=== PATIENT | female | born 1985 | race Caucasian/White ===

== ENCOUNTER 2019-03-08 07:28 | Emergency (ER) | payer MEDICAID ==
[~2019-03-08] VITALS: Ht 149.9 cm; Wt 68.2 kg
[2019-03-08 07:32] VITALS: Ht 149.9 cm; Wt 68.2 kg
[2019-03-08 08:01] LABS: BASOPHILS 0.1 % (0-2); EOSINOPHILS 0.6 % (0-7); HEMOGLOBIN 12.5 g/dL (12-16); IMMATURE GRANULOCYTES 0.3 % (0-5); LYMPHOCYTES 22.8 % (15-50); MCHC 33.8 g/dL (31.0-37.0); MCV 88.9 fL (80.0-100.0); MEAN PLATELET VOLUME 9.7 fL (7.4-10.4); MONOCYTES 5.9 % (2-11); NEUTROPHILS 70.3 % (40-80); PLATELET COUNT 276 10x3/uL (130-400); RBC 4.16 10x6/uL (4.00-5.40); RDW 13.2 % (11.5-14.5); WBC 7.1 10x3/uL (4.8-10.8)
[2019-03-08 08:08] LABS: CALC OSMOLALITY 272 mosm/kg (275-300); CALCIUM 8.9 mg/dL (8.5-10.1); CARBON DIOXIDE 26.6 mmol/L (21.0-32.0); CHLORIDE - SERUM 105 mmol/L (98-107); CREATININE - SERUM 0.6 mg/dL (0.6-1.3); GLUCOSE 75 mg/dL (74-106); POTASSIUM - SERUM 3.7 mmol/L (3.5-5.1); SODIUM 138 mmol/L (136-145); UREA NITROGEN 6 mg/dL (7-18); eGFR NON AFRICAN AMERICAN > 90 mL/min (90-120)
[2019-03-08 08:14] LABS: ALBUMIN 3.4 g/dL (3.4-5.0); ALKALINE PHOSPHATASE 65 U/L (46-116); ALT (SGPT) 17 U/L (10-68); BILIRUBIN - TOTAL 0.39 mg/dL (0.2-1.3); LIPASE 81 U/L (73-393); PROTEIN - SERUM 7.7 g/dL (6.4-8.2)
[2019-03-08 08:20] LABS: AMORPHOUS SEDIMENT <1+ /lpf (NONE SEEN); APPEARANCE SL CLDY (CLEAR); BACTERIA MODERATE /hpf (NEGATIVE); BILIRUBIN NEGATIVE (NEGATIVE); COLOR YELLOW (YELLOW); EPITHELIAL CELLS 0-5 /hpf (0-5); GLUCOSE NEGATIVE (NEGATIVE); KETONE NEGATIVE (NEGATIVE); MUCUS <1+ /lpf (NONE SEEN); NITRITE NEGATIVE (NEGATIVE); PROTEIN NEGATIVE (NEGATIVE); RED CELLS - URINE RARE /hpf (0-5); UROBILINOGEN NORMAL (NORMAL); WHITE CELLS - URINE 0-5 /hpf (NEGATIVE)
[2019-03-08] MEDS ORDERED: VITAMIN B-625 MG PO (08:28)
[2019-03-08] MEDS ORDERED: OMNICEF300 MG PO (08:30)
[2019-03-08 09:05] VITALS: BP 102/66
== END 2019-03-08 09:16 | disposition home or self-care (01) ==
LOC: D.ER 07:28
PROVIDERS: Family Medicine
DX: O26.891 Other specified pregnancy related conditions, first trimester (principal); R82.71 Bacteriuria; Z3A.10 10 weeks gestation of pregnancy

== ENCOUNTER 2019-04-09 11:03 | Emergency (ER) | payer MEDICAID ==
[~2019-04-09] VITALS: Ht 149.9 cm; Wt 65.9 kg
[~2019-04-09 11:03] MED LIST: OMNICEF300 MG PO; VITAMIN B-625 MG PO
[2019-04-09 11:08] VITALS: Ht 149.9 cm; Wt 65.9 kg
[2019-04-09 11:26] LABS: BASOPHILS 0.2 % (0-2); EOSINOPHILS 0.8 % (0-7); HEMATOCRIT 34.5 % (36.0-48.0); HEMOGLOBIN 11.9 g/dL (12-16); IMMATURE GRANULOCYTES 0.2 % (0-5); LYMPHOCYTES 22.8 % (15-50); MCH 30.2 pg (26.0-34.0); MCHC 34.5 g/dL (31.0-37.0); MCV 87.6 fL (80.0-100.0); MEAN PLATELET VOLUME 9.9 fL (7.4-10.4); MONOCYTES 5.4 % (2-11); NEUTROPHILS 70.6 % (40-80); PLATELET COUNT 260 10x3/uL (130-400); RBC 3.94 10x6/uL (4.00-5.40); RDW 13.1 % (11.5-14.5); WBC 9.6 10x3/uL (4.8-10.8)
[2019-04-09 11:53] LABS: CALC OSMOLALITY 271 mosm/kg (275-300); CALCIUM 8.8 mg/dL (8.5-10.1); CHLORIDE - SERUM 104 mmol/L (98-107); CREATININE - SERUM 0.7 mg/dL (0.6-1.3); GLUCOSE 94 mg/dL (74-106); POTASSIUM - SERUM 3.3 mmol/L (3.5-5.1); SODIUM 137 mmol/L (136-145); UREA NITROGEN 8 mg/dL (7-18); eGFR NON AFRICAN AMERICAN > 90 mL/min (90-120)
[2019-04-09 11:56] LABS: ALBUMIN 3.1 g/dL (3.4-5.0)
[2019-04-09 12:07] LABS: APPEARANCE HAZY (CLEAR); BILIRUBIN NEGATIVE (NEGATIVE); COLOR YELLOW (YELLOW); GLUCOSE NEGATIVE (NEGATIVE); KETONE NEGATIVE (NEGATIVE); NITRITE NEGATIVE (NEGATIVE); PROTEIN TRACE mg/dL (NEGATIVE); UROBILINOGEN NORMAL (NORMAL)
[2019-04-09 12:08] LABS: BACTERIA MODERATE /hpf (NEGATIVE); RED CELLS - URINE NONE SEEN /hpf (0-5); WHITE CELLS - URINE 0-5 /hpf (NEGATIVE)
[2019-04-09 12:52] LABS: ALKALINE PHOSPHATASE 70 U/L (46-116); ALT (SGPT) 10 U/L (10-68); BILIRUBIN - TOTAL 0.25 mg/dL (0.2-1.3); HCG - QUANTITATIVE (MATERNAL) 26962 mIU/mL; PROTEIN - SERUM 6.9 g/dL (6.4-8.2)
[2019-04-09 16:15] VITALS: BP 114/70
== END 2019-04-09 16:19 | disposition home or self-care (01) ==
LOC: D.ER 11:03
PROVIDERS: Family Medicine
DX: O26.892 Other specified pregnancy related conditions, second trimester (principal); Z3A.17 17 weeks gestation of pregnancy; R42 Dizziness and giddiness; E53.8 Deficiency of other specified B group vitamins; R20.0 Anesthesia of skin; R51 Headache

== ENCOUNTER 2019-05-08 12:35 | Outpatient (CLI) | payer MEDICAID ==
[2019-04-09 11:08] VITALS: BMI 29.3
[2019-05-08 14:32] LABS: BASOPHILS 0.1 % (0-2); EOSINOPHILS 0.6 % (0-7); HEMATOCRIT 32.1 % (36.0-48.0); IMMATURE GRANULOCYTES 0.3 % (0-5); LYMPHOCYTES 19.6 % (15-50); MCH 30.1 pg (26.0-34.0); MCHC 34.3 g/dL (31.0-37.0); MCV 87.9 fL (80.0-100.0); MEAN PLATELET VOLUME 10.1 fL (7.4-10.4); MONOCYTES 5.6 % (2-11); NEUTROPHILS 73.8 % (40-80); PLATELET COUNT 244 10x3/uL (130-400); RBC 3.65 10x6/uL (4.00-5.40); RDW 13.5 % (11.5-14.5); WBC 11.3 10x3/uL (4.8-10.8)
[2019-05-08 14:40] LABS: CALC OSMOLALITY 274 mosm/kg (275-300); CALCIUM 8.3 mg/dL (8.5-10.1); CARBON DIOXIDE 27.7 mmol/L (21.0-32.0); CHLORIDE - SERUM 103 mmol/L (98-107); CREATININE - SERUM 0.5 mg/dL (0.6-1.3); POTASSIUM - SERUM 3.7 mmol/L (3.5-5.1); SODIUM 140 mmol/L (136-145); UREA NITROGEN 8 mg/dL (7-18); eGFR NON AFRICAN AMERICAN > 90 mL/min (90-120)
[2019-05-08 14:46] LABS: ALBUMIN 2.8 g/dL (3.4-5.0); ALKALINE PHOSPHATASE 64 U/L (46-116); ALT (SGPT) 9 U/L (10-68); BILIRUBIN - TOTAL 0.16 mg/dL (0.2-1.3); PROTEIN - SERUM 6.5 g/dL (6.4-8.2)
[2019-05-08 15:02] LABS: GLUCOSE 69 mg/dL (74-106)
[2019-05-08 15:10] LABS: APPEARANCE CLEAR (CLEAR); BILIRUBIN NEGATIVE (NEGATIVE); COLOR YELLOW (YELLOW); GLUCOSE NEGATIVE (NEGATIVE); KETONE NEGATIVE (NEGATIVE); NITRITE NEGATIVE (NEGATIVE); PROTEIN NEGATIVE (NEGATIVE); SPECIFIC GRAVITY 1.025 (1.005-1.020); UROBILINOGEN NORMAL (NORMAL)
[2019-05-13 14:08] LABS: AFP - AFP VALUE 63.2 ng/mL (()); AFP - GESTAT. AGE BASED ON As provided (()); AFP - MATERNAL AGE AT EDD 31.9 yr (()); ALPHA FETOPROTEIN - RESULTS Report (()); DIA MoM See interpretation. (()); DIA VALUE 251.31 pg/mL (()); DSR (SECOND TRIMESTER) 1 IN See interpretation. (()); DSR(BY AGE) 1 IN 535 (()); HCG VALUE 28054 mIU/mL (()); OSBR RISK 1 IN See interpretation. (()); T18 RISK See interpretation. (()); uE3 MoM See interpretation. (())
== END 2019-05-08 15:25 | disposition home or self-care (01) ==
LOC: D.LDO 12:35
PROVIDERS: ATTEND Obstetrics & Gynecology
DX: O62.9 Abnormality of forces of labor, unspecified (principal); Z3A.00 Weeks of gestation of pregnancy not specified; R10.9 Unspecified abdominal pain

== ENCOUNTER → 2019-06-20 14:46 | Outpatient (CLI) | payer MEDICAID ==
[2019-04-09 11:08] VITALS: BMI 29.3
[2019-06-20 15:42] LABS: APPEARANCE CLEAR (CLEAR); BILIRUBIN NEGATIVE (NEGATIVE); COLOR YELLOW (YELLOW); GLUCOSE NEGATIVE (NEGATIVE); KETONE NEGATIVE (NEGATIVE); NITRITE NEGATIVE (NEGATIVE); PROTEIN NEGATIVE (NEGATIVE); SPECIFIC GRAVITY 1.025 (1.005-1.020); UROBILINOGEN NORMAL (NORMAL)
== END | disposition home or self-care (01) ==
LOC: D.LDO 14:46
PROVIDERS: ATTEND Student in an Organized Health Care Education/Training Program
DX: O26.899 Other specified pregnancy related conditions, unspecified trimester (principal); Z3A.00 Weeks of gestation of pregnancy not specified; R10.9 Unspecified abdominal pain

== ENCOUNTER 2019-08-08 11:56 | Outpatient (CLI) | payer MEDICAID ==
[2019-04-09 11:08] VITALS: BMI 29.3
== END 2019-08-08 12:47 | disposition home or self-care (01) ==
LOC: D.LDO 11:56
PROVIDERS: ATTEND Obstetrics & Gynecology
DX: O36.8130 Decreased fetal movements, third trimester, not applicable or unspecified (principal); Z3A.34 34 weeks gestation of pregnancy

== ENCOUNTER → 2019-08-21 10:59 | Outpatient (CLI) | payer MEDICAID ==
[2019-04-09 11:08] VITALS: BMI 29.3
[2019-08-21 12:29] LABS: BASOPHILS 0.1 % (0-2); EOSINOPHILS 0.6 % (0-7); HEMATOCRIT 32.7 % (36.0-48.0); HEMOGLOBIN 10.7 g/dL (12-16); IMMATURE GRANULOCYTES 0.3 % (0-5); LYMPHOCYTES 19.1 % (15-50); MCH 29.1 pg (26.0-34.0); MCHC 32.7 g/dL (31.0-37.0); MCV 88.9 fL (80.0-100.0); MEAN PLATELET VOLUME 11.2 fL (7.4-10.4); MONOCYTES 6.3 % (2-11); NEUTROPHILS 73.6 % (40-80); PLATELET COUNT 240 10x3/uL (130-400); RBC 3.68 10x6/uL (4.00-5.40); RDW 13.1 % (11.5-14.5); WBC 9.8 10x3/uL (4.8-10.8)
[2019-08-21 12:52] LABS: CALC OSMOLALITY 267 mosm/kg (275-300); CALCIUM 8.2 mg/dL (8.5-10.1); CARBON DIOXIDE 20.8 mmol/L (21.0-32.0); CHLORIDE - SERUM 103 mmol/L (98-107); CREATININE - SERUM 0.5 mg/dL (0.6-1.3); POTASSIUM - SERUM 3.7 mmol/L (3.5-5.1); SODIUM 136 mmol/L (136-145); UREA NITROGEN 6 mg/dL (7-18); eGFR NON AFRICAN AMERICAN > 90 mL/min (90-120)
[2019-08-21 12:55] LABS: GLUCOSE 66 mg/dL (74-106)
[2019-08-21 12:58] LABS: ALBUMIN 2.7 g/dL (3.4-5.0); ALKALINE PHOSPHATASE 136 U/L (30-120); ALT (SGPT) 10 U/L (10-68); AMYLASE - SERUM 47 U/L (25-115); BILIRUBIN - TOTAL 0.32 mg/dL (0.2-1.3); LIPASE 123 U/L (73-393); PROTEIN - SERUM 6.8 g/dL (6.4-8.2)
[2019-08-21 13:27] LABS: SPECIFIC GRAVITY 1.015 (1.005-1.020)
[2019-08-21 13:28] LABS: BILIRUBIN NEGATIVE (NEGATIVE); GLUCOSE 250 mg/dL (NEGATIVE); KETONE MODERATE mg/dL (NEGATIVE); NITRITE NEGATIVE (NEGATIVE); UROBILINOGEN NORMAL (NORMAL)
[2019-08-21 13:30] LABS: BACTERIA MODERATE /hpf (NEGATIVE); EPITHELIAL CELLS 0-5 /hpf (0-5); RED CELLS - URINE 0-5 /hpf (0-5); WHITE CELLS - URINE 0-5 /hpf (NEGATIVE)
[2019-08-21 16:30] LABS: BILIRUBIN NEGATIVE (NEGATIVE); GLUCOSE NEGATIVE (NEGATIVE); KETONE MODERATE mg/dL (NEGATIVE); NITRITE NEGATIVE (NEGATIVE); UROBILINOGEN NORMAL (NORMAL)
[2019-08-21 16:34] LABS: BACTERIA MANY /hpf (NEGATIVE); EPITHELIAL CELLS 0-5 /hpf (0-5); RED CELLS - URINE OCC /hpf (0-5); WHITE CELLS - URINE 0-5 /hpf (NEGATIVE)
== END | disposition home or self-care (01) ==
LOC: D.LDO 10:59
PROVIDERS: ATTEND Obstetrics & Gynecology
DX: O21.2 Late vomiting of pregnancy (principal); Z3A.35 35 weeks gestation of pregnancy

== ENCOUNTER 2019-09-08 12:43 | Outpatient (CLI) | payer MEDICAID ==
[2019-04-09 11:08] VITALS: BMI 29.3
== END 2019-09-08 13:59 ==
LOC: D.LDO 12:43
PROVIDERS: ATTEND Student in an Organized Health Care Education/Training Program
DX: O41.03X0 Oligohydramnios, third trimester, not applicable or unspecified (principal); Z3A.38 38 weeks gestation of pregnancy

== ENCOUNTER 2019-09-12 11:21 | Outpatient (CLI) | payer MEDICAID ==
[2019-04-09 11:08] VITALS: BMI 29.3
== END 2019-09-12 11:49 | disposition home or self-care (01) ==
LOC: D.LDO 11:21
PROVIDERS: ATTEND Obstetrics & Gynecology
DX: O41.03X0 Oligohydramnios, third trimester, not applicable or unspecified (principal); Z3A.39 39 weeks gestation of pregnancy

== ENCOUNTER 2019-09-16 08:36 | Outpatient (CLI) | payer MEDICAID ==
[2019-04-09 11:08] VITALS: BMI 29.3
== END 2019-09-16 09:37 | disposition home or self-care (01) ==
LOC: D.LDO 08:36
PROVIDERS: ATTEND Student in an Organized Health Care Education/Training Program
DX: O41.03X0 Oligohydramnios, third trimester, not applicable or unspecified (principal); Z3A.39 39 weeks gestation of pregnancy

== ENCOUNTER 2019-09-19 05:40 | Inpatient (IN) | payer MEDICAID ==
[~2019-09-19] VITALS: Ht 149.9 cm; Wt 72.3 kg
[2019-09-19 06:18] VITALS: BP 108/57; Ht 149.9 cm; Wt 72.3 kg
[2019-09-19 06:29] LABS: HEMATOCRIT 33.8 % (36.0-48.0); MCH 28.5 pg (26.0-34.0); MCHC 32.5 g/dL (31.0-37.0); MCV 87.6 fL (80.0-100.0); MEAN PLATELET VOLUME 11.6 fL (7.4-10.4); RBC 3.86 10x6/uL (4.00-5.40); RDW 13.3 % (11.5-14.5); WBC 9.5 10x3/uL (4.8-10.8)
[2019-09-19 07:56] LABS: UDS - AMPHET NEGATIVE QUAL (NEGATIVE); UDS - BARB NEGATIVE QUAL (NEGATIVE); UDS - BENZO NEGATIVE QUAL (NEGATIVE); UDS - COCAINE NEGATIVE QUAL (NEGATIVE); UDS - OPIATE NEGATIVE QUAL (NEGATIVE); UDS - PCP NEGATIVE QUAL (NEGATIVE); UDS - THC POSITIVE QUAL (NEGATIVE)
[2019-09-19 08:07] LABS: BACTERIA MODERATE /hpf (NEGATIVE); BILIRUBIN NEGATIVE (NEGATIVE); EPITHELIAL CELLS 0-5 /hpf (0-5); GLUCOSE NEGATIVE (NEGATIVE); KETONE NEGATIVE (NEGATIVE); NITRITE NEGATIVE (NEGATIVE); RED CELLS - URINE RARE /hpf (0-5); SPECIFIC GRAVITY 1.015 (1.005-1.020); UROBILINOGEN NORMAL (NORMAL); WHITE CELLS - URINE 0-5 /hpf (NEGATIVE)
--- NOTE | 2019-09-19 10:00 | NUR ---
RECEIVED FROM RECOVERY BY BED, SHE IS AWAKE AND ALERT, RATES PAIN AT 0/10. FUNDUS FIRM AT U/2 WITH SCANT BLEEDING NOTED TO MAYI PAD, LARGE WHITE ABD DRESSING OVER BIKINI INCISION. KNOTT CATH TO BEDSIDE DRAIN WITH 200ML CLEAR URINE NOTED. IV TO LEFT WRIST, PATENT AND INFUSING NS WITH 20UNITS PITOCIN VIA PUMP. SCDS BILAT PER ORDERS. SIG OTHER AT BEDSIDE. CALL LIGHT IN REACH WITH SIDE RAILS UP X 2.
--- NOTE | 2019-09-19 10:04 | NUR ---
REPORT TO REN, CURING ROOM SUPERVISOR, WHO WILL BE COVERING UNIT FOR BRIEF TIME.
--- NOTE | 2019-09-19 11:00 | NUR ---
FUNDUS FIRM AT U/2, SCANT BLEEDING NOTED AND PT CONTINUE TO RATE PAIN AT 0/10. SIDE RAILS UP X 2, SIG OTHER AND INFANT AT BEDSIDE. CALL LIGHT IN REACH.
[2019-09-19 11:30] VITALS: BP 117/60
--- NOTE | 2019-09-19 11:30 | NUR ---
shift assessment completed. fundus firm, u/2, small rubra lochia, no clots expelled. abdomen palpates soft. see assessment flowsheet. see emar for all meds adm by this rn. sig other at bedside, sitting with pt. pt requesting ice water to drink, served. pt denies all other needs at this time. srup x2, call light and phone within reach.
[2019-09-19 12:15] LABS: BASOPHILS 0.1 % (0-2); EOSINOPHILS 0.3 % (0-7); HEMATOCRIT 30.9 % (36.0-48.0); IMMATURE GRANULOCYTES 0.2 % (0-5); LYMPHOCYTES 14.8 % (15-50); MCH 28.7 pg (26.0-34.0); MCHC 32.4 g/dL (31.0-37.0); MCV 88.8 fL (80.0-100.0); MONOCYTES 3.6 % (2-11); PLATELET COUNT 199 10x3/uL (130-400); RBC 3.48 10x6/uL (4.00-5.40); RDW 13.3 % (11.5-14.5)
[2019-09-19 12:19] LABS: WBC 12.7 10x3/uL (4.8-10.8)
[2019-09-19 14:30] VITALS: BP 122/60
--- NOTE | 2019-09-19 14:30 | NUR ---
to pt's room, fundus firm, u/2, small rubra lochia, no clots. pericare done with warm wet washcloths, peritowels/chux changed, new peripads on. laws cath continues to drain yellow urine. 200 cc's noted out. srup x2, call light and phone within reach. pt denies sob, nausea, or difficulty breathing.
--- NOTE | 2019-09-19 19:00 | NUR ---
REPORT WAS GIVEN BY TAYLOR MCCLURE
[2019-09-19 20:00] VITALS: BP 101/57
--- NOTE | 2019-09-19 20:30 | NUR ---
PT IS DOING WELL. SHE IS RESTING IN BED WITHOUT C/O. SHE HAS A ETCHER MACHINE PUMP THAT SHE USES RARELY. ASSESSMENT COMPLETED. PT FUNDUS IS FIRM AND HER BLEEDING IS SMALL-MOD. KNOTT CATHETER IS DRAINING YELLOW URING. PT IS ENCOURAGED TO DRINK FLUIDS. SHE HAS HAD NO N/V. SO IS AT THE BEDSIDE AND HE IS VERY GOOD WITH THE BABY. PT IS IN BED PER DR. GUTIERREZ'S ORDERS.
--- NOTE | 2019-09-19 21:00 | NUR ---
PT IS RESTING QUIETLY WATCHING TV. BABY IN CRIB.
--- NOTE | 2019-09-19 23:44 | NUR ---
WENT IN TO TAKE MIDNIGHT VS. PT IS HOLDING HER BABY. SHE ASKED IF I COULD CHANGE HER PADS. THIS WAS DONE AND HER PANIES WERE PUT ON TO HOLD PAD IN PLACE. PT LOCHIA IS SMALLER THIS CHECK. FUNDUS IS FIRM. NEW ICE PACK BROUGHT TO HER ALONG WITH FRESH WATER. SHE IS GOING TO FEED THE BABY AT THIS TIME. I TOLD HER THAT SHE COULD NOT SLEEP WITH THE BABY IN BED WITH HER. SHE STATES SHE KNOWS AND THIS WAS DISCUSSED EARLIER IN THE DAY.
[2019-09-20] VITALS: BP 99/52
--- NOTE | 2019-09-20 02:00 | NUR ---
PT IS RESTING QUIETLY IN BED. NO C/O OR NEEDS AT THIS TIME.
[2019-09-20 04:00] VITALS: BP 103/55
--- NOTE | 2019-09-20 04:10 | NUR ---
PT WOKE UP FOR VS. SHE HAS NO PROBLEMS OR NEEDS AT THIS TIME. SHE STATES SHE IS USING HER ENTRY CLERK PUMP FOR PAIN CONTROL. ASKED IF SHE WANTED TO CHANGE PADS AND SHE SAID NO.
[2019-09-20 05:52] LABS: BASOPHILS 0.1 % (0-2); EOSINOPHILS 0.6 % (0-7); HEMATOCRIT 28.2 % (36.0-48.0); IMMATURE GRANULOCYTES 0.3 % (0-5); LYMPHOCYTES 15.2 % (15-50); MCH 28.2 pg (26.0-34.0); MCHC 31.9 g/dL (31.0-37.0); MCV 88.4 fL (80.0-100.0); MEAN PLATELET VOLUME 11.3 fL (7.4-10.4); NEUTROPHILS 77.8 % (40-80); PLATELET COUNT 192 10x3/uL (130-400); RBC 3.19 10x6/uL (4.00-5.40); RDW 13.2 % (11.5-14.5); WBC 9.9 10x3/uL (4.8-10.8)
[2019-09-20 06:09] LABS: RAPID PLASMA REAGIN Non Reactive (Non Reactive)
[2019-09-20 07:30] VITALS: BP 118/62
--- NOTE | 2019-09-20 09:55 | NUR ---
DR. GUTIERREZ ON UNIT, TO ROOM TO SPEAK WITH PT.
--- NOTE | 2019-09-20 11:20 | NUR ---
to pt's room, laws cath removed with total of 1600 ml's dark yellow urine emptied, as 1000 ml's left from last night. pericare done with foam cleanser and warm wet washcloths. new peripads on. fundus firm, u/1, small rubra lochia, no clots. incision remains c/d/i. pt has scd's on. iv sl at this time. see emar for all meds adm by this rn. andreea lemon barrow soda served. incentive spirometer provided, with instructions, and demonstrated well by pt. pt encouraged to perform coughing and deep breathing exercises while splinting abdomen with pillow. pt agrees. pt denies sob, difficulty breathing, or n/v. denies all other needs. srup x2, call light and phone within reach.
--- NOTE | 2019-09-20 12:30 | NUR ---
pt up to br per self, voids 200 ml's yellow urine in [place] hat. pericare done per self, peripanties/pads on. pt dressed in own clothing. pt denies all needs at this time. pt back to bed, srup x2, call light and phone within reach.
--- NOTE | 2019-09-20 14:30 | NUR ---
pt up to shower, per self, and then back to bed. pt denies all needs. denies heavy bleeding or passing clots. srup x2, call light and phone within reach.
[2019-09-20 16:00] VITALS: BP 112/70
--- NOTE | 2019-09-20 16:00 | NUR ---
to pt's room, pt is sitting up in the bed, holding , no distress noted in , swaddled and placed in crib for transfer to 1257. assisted mother with transfer of personal belongings to 1257. gait slow, and steady. mother pushing inant in crib to new room, oriented to room. srup x1, call light and phone within reach. pt provided with peripads/panties.
--- NOTE | 2019-09-20 17:05 | MORECARE ---
CASE MANAGEMENT DISCHARGE SUMMARY PATIENT: BILL NUNES UNIT: [id number] ADM DATE: 09/19/19 AGE: 33 : [birth year] SEX: F ROOM/BED: D.[facility] AUTHOR: SHARA RATLIFF PHYSICIAN: REFERRING PHYSICIAN: STEPHIE GUTIERREZ MD DATE OF SERVICE: 09/20/19 Discharge Plan Patient Name: BILL NUNES Facility: [facility]:[place] : 1985 Planned Disposition: Home Anticipated Discharge Date: 09/23/19 Discharge Date: Expected LOS: 4 Initial Reviewer: [email or web address] Initial Review Date: 09/19/2019 Generated: 09/20/19 6:05 pm Patient Name: BILL NUNES Page [phone] at 1705 All edits/amendments must be made on the electronic document DICTATION DATE: 09/20/191704 GRAPPLE SKIDDER OPERATOR: ANTONIO 09/20/191704 RPT#: [id number] DC DATE: STATUS: ADM IN [facility] [address] [place] [address] END OF REPORT
--- NOTE | 2019-09-20 19:48 | NUR ---
PT MEDICATED WITH NORCO IRINEO LOPEZ RN. PAIN LEVEL OF 4-5/10. Liz PATTEN RN
[2019-09-20 20:38] VITALS: BP 105/56
--- NOTE | 2019-09-20 20:38 | NUR ---
PT REC'D IN BED AT THIS TIME. STATES THAT PAIN LEVEL IS A 3/10 AT THIS TIME. PT STATES THAT SHE HAS NOT PASSED ANY GAS. PT INFORMED OF NEED TO ABMULATE AT LEAST 4 TIMES A DAY TO HELP DECREASE PAIN. UNDERSTANDING VERBALIZED. FUNDUS FIRM WITH SCANT LOCHIA NOTED. EDIL INTACT WITHOUT S/S OF INFECTION NOTED. NO DISTRESS NOTED. Liz PATTEN RN
--- NOTE | 2019-09-20 21:00 | NUR ---
PT TAKEN AN ABDOMINAL BINDER AND GOWN SO THAT SHE CAN WALK. Liz PATTEN RN
--- NOTE | 2019-09-20 22:00 | NUR ---
PT REC'D IN BED WITH LIGHTS OFF RESTING. NO DISTRESS NOTED. Liz PATTEN RN
[2019-09-21 00:13] VITALS: BP 92/52
--- NOTE | 2019-09-21 00:18 | NUR ---
PT MEDICATED WITH NORCO AND MOTRIN FOR PAIN OF 5/10. VSS. AFEBRILE. WILL MONITOR. Liz PATTEN RN
--- NOTE | 2019-09-21 01:20 | NUR ---
PT REC'D UP TO BATHROOM AT THIS TIME. PAIN 06/10. NO DISTRESS NOTED. Liz PATTEN RN
--- NOTE | 2019-09-21 03:55 | NUR ---
P ASLEEP AT THIS TIME. DID NOT AWAKEN. NO DISTRESS NOTED. RESPS EVEN AND UNLABORED. Liz PATTEN RN
[2019-09-21 04:30] VITALS: BP 104/62
--- NOTE | 2019-09-21 04:36 | NUR ---
VSS. PT MEDICATED WITH NORCO FOR PAIN. Liz PATTEN RN
--- NOTE | 2019-09-21 05:38 | NUR ---
pt rec'd in bed at this time. denies yuly at this time. no distress noted. deepthi rubio rn
--- NOTE | 2019-09-21 06:45 | NUR ---
PT ASLEEP AT THIS TIME. DID NOT AWAKEN AT THIS TIME. RESPS EVEN AND UNLABORED. Liz PATTEN RN
--- NOTE | 2019-09-21 07:40 | NUR ---
SLEEPING IN SEMI-FOWLERS POSITION. RESPIRATIONS EVEN. IN ROOM, IN CRIB. SIDE RAILS UP X 2, CALL LIGHT IN REACH. WILL COMPLETE SHIFT ASSESSMENT WHEN AWAKE.
--- NOTE | 2019-09-21 07:47 | NUR ---
ANTICIPATE DC HOME TODAY. A+, RUBELLA IMMUNE, SMOKER, PRODUCE ASSISTANT. UDS + FOR THC, WILL CHECK TDAP STATUS IF AVAILABLE.
[2019-09-21 08:40] VITALS: BP 105/64
--- NOTE | 2019-09-21 08:40 | NUR ---
SITTING UP IN BED WITH BETWEEN LEGS. VISITOR ON COUCH. FINISHED BREAKFAST. DR GUTIERREZ VISITED EARLIER, ORDERS RECEIVED TO [facility] HOME. SHIFT ASSESSMENT COMPLETED. DENIES PAIN. HAS NOT PASSED FLATUS, ABDOME SOFT WITH ACTIVE BS X 4. DISCUSSED METHODS TO PROMOTE PASSING GAS TO INCLUDE LLD POSITION. SAYS SHE IS NON=SMOKER. TDAP LAST RECIEVED IN 1999. INFORMED PT THAT SHE MAY RECEIVED TDAP BEFORE GOING HOME, IF SHE DESIRES. WILL GIVE HEALTH DEPARTMENT INFORMATION SHEET TO READ. VERBALIZED UNDERSTANDING. NO REQUESTS. TO CALL IF ANYTHING IS NEEDED.
--- NOTE | 2019-09-21 09:38 | NUR ---
SITTING UP IN BED. SAYS INFANT IS STILL SPITTING UP FORMULA. ASKED IF SHE CAN BREASTFEED EVEN IS SHE "SMOKED" (MARIJUANA) THIS WEEK. INFORMED PT THAT SHE CAN BREASTFEED AND TO TRY IF DESIRES. Verna GUTIERREZ, NURSERY RN NOTIFIED. NO REQUESTS AT THIS TIME. SALINE LOCK DC'D WITH TIP INTACT. CALL LIGHT IN REACH.
--- NOTE | 2019-09-21 10:39 | NUR ---
UP IN BATHROOM GETTING DRESSING. DENIES NEEDING ANYTHING. VISITOR AND IN ROOM. TDAP INFORMATION LEFT FOR PATIENT INFORMATION.
--- NOTE | 2019-09-21 12:07 | NUR ---
UP IN BATHROOM. DECLINES TDAP. READY TO GO HOME.
[2019-09-21] MEDS ORDERED: HYDROCODON-ACE1 EA10 PO (12:18)
[2019-09-21] MEDS ORDERED: IBUPROFEN600 MG PO (12:19)
--- NOTE | 2019-09-21 12:53 | NUR ---
NORCO 10 MG, MOTRIN 600 MG AND MYLICON 80 MG GIVEN FOR C/O 4/10 INCISIONAL, LOW ABDOMINAL SHARP PAIN AND CRAMPING, AFTER DISCUSSING PAIN MANAGEMENT OPTIONS. WARM PRUNE JUICE ALSO GIVEN. WAITING ON FAMILY TO RETURN HOME FOR DC. INFANT HAS BEEN DC'D. REVIEWED DC INSTRUCTIONS TO INCLUDE POST OP CARE, PP DEPRESSION, SIGNS OF INFECTION, DANGER SIGNS, BREASTCARE, MEDICATION ADMINISTRATION AND FOLLOW-UP. DENIES QUESTIONS AT THIS TIME. LAYING IN BED WITH . REMINDED NOT TO FALL ASLEEP WITH INFANT IN BED. VERBALIZED UNDERSTANDING. TO CALL RN WHEN READY TO GO HOME.
--- NOTE | 2019-09-21 14:00 | NUR ---
STILL HAS 4/10 INCISIONAL LOW ABD CRAMPING/BURNING WHEN STANDING AND WALKING. DISCUSSED RELIEF MEASURES. ASSISSTED TO APPLY ABDOMINAL BINDER MORE FIRMLY TO HELP SUPPORT LOWER ABDOMEN. ENCOURAGED REPEAT OF NORCO TAB IN 4 HOURS THIS MAY HELP DECREASE PAIN. EXPLAINED THAT SHE MAY HAVE WAITED TO LONG BETWEEN DOSES TO KEEP PAIN MANAGABLE FOR HER. VERBALIZED UNDERSTANDING. DC'D VIA W/C TO CAR. FOB DRIVING. HAS ALL BELONGINGS, PRESCRIPTIONS AND DC INSTRUCTIONS.
[2019-09-22 13:08] LABS: UDSC - AMPHET Negative ng/mL (Cutoff=1000); UDSC - BARB Negative ng/mL (Cutoff=300); UDSC - BENZO Negative ng/mL (Cutoff=300); UDSC - COC Negative ng/mL (Cutoff=300); UDSC - METH Negative ng/mL (Cutoff=300); UDSC - OPIATES Negative ng/mL (Cutoff=300); UDSC - PCP Negative ng/mL (Cutoff=25); UDSC - PROPOXY Negative ng/mL (Cutoff=300); UDSC - THC Positive (Cutoff=50)
--- NOTE | 2019-09-24 09:06 | MORECARE ---
CASE MANAGEMENT DISCHARGE SUMMARY PATIENT: BILL NUNES UNIT: [id number] ADM DATE: 09/19/19 AGE: 33 : [birth year] SEX: F ROOM/BED: D.1257 AUTHOR: SHARA RATLIFF PHYSICIAN: REFERRING PHYSICIAN: STEPHIE GUTIERREZ MD DATE OF SERVICE: 09/24/19 Discharge Plan Patient Name: BILL NUNES Facility: [facility]:[place] : 1985 Planned Disposition: Home Anticipated Discharge Date: 09/23/19 Discharge Date: 09/21/2019 Expected LOS: 4 Initial Reviewer: [email or web address] Initial Review Date: 09/19/2019 Generated: 09/24/19 10:06 am Last DP export: 09/20/19 4:05 p Patient Name: BILL NUNES Page [phone] at 0906 All edits/amendments must be made on the electronic document DICTATION DATE: 09/24/19905 HATCHERY ATTENDANT: ANTONIO 09/24/19905 RPT#: [id number] DC DATE:09/21/19 STATUS: DIS IN [facility] [address] [place] [address] END OF REPORT
== END 2019-09-21 14:00 | disposition home or self-care (01) | DRG 788 ==
LOC: D.WS 05:40 → D.LD 05:40 → D.SDCHOLD 07:30 → D.WS 09:27 → D.LD 09-20 19:05
PROVIDERS: ADMIT Obstetrics & Gynecology; ATTEND Obstetrics & Gynecology
PROC: 10D00Z1 Extraction of Products of Conception, Low, Open Approach (ICD-10-PCS; principal; 2019-09-19 07:30)
DX: O34.211 Maternal care for low transverse scar from previous cesarean delivery (principal); Z3A.40 40 weeks gestation of pregnancy; Z37.0 Single live birth

== ENCOUNTER → 2019-10-29 15:28 | Outpatient (CLI) | payer MEDICAID ==
[2019-09-19 06:18] VITALS: BMI 32.2
[~2019-10-29 15:28] MED LIST changes: +HYDROCODON-ACE1 EA10 PO; +IBUPROFEN600 MG PO
== END | disposition home or self-care (01) ==
LOC: D.CT 15:28
PROVIDERS: ATTEND Obstetrics & Gynecology
DX: R10.9 Unspecified abdominal pain (principal)